=== PATIENT | female | born 1975 | race Caucasian/White ===

== ENCOUNTER → 2016-06-01 | Outpatient (CLI) | payer OTHER | LOC: BMCIMAGING 11:49 | PROVIDERS: ATTEND Family Medicine | DX: R06.00 Dyspnea, unspecified (principal); R07.89 Other chest pain ==

== ENCOUNTER → 2017-08-21 | Outpatient (CLI) | payer OTHER | LOC: FIMAGING 09:19 | PROVIDERS: ATTEND Family Medicine | DX: Z12.31 Encounter for screening mammogram for malignant neoplasm of breast (principal) ==

== ENCOUNTER → 2017-09-22 | Outpatient (CLI) | payer OTHER | LOC: FIMAGING 10:06 | PROVIDERS: ATTEND Family Medicine | DX: R92.8 Other abnormal and inconclusive findings on diagnostic imaging of breast (principal) ==

== ENCOUNTER → 2018-09-05 | Outpatient (CLI) | payer OTHER | LOC: BMCIMAGING 09:23 ==